=== PATIENT | female | born 1970 | race Caucasian/White ===

== ENCOUNTER → 2016-02-24 | Outpatient (CLI) | payer BC, OTHER ==
[~2016-02-24] MED LIST: AMBIEN5 MG PO; EXCEDRIN EXTRA STREN PO; IBUPROFEN400 MG PO; VICODIN EQUIVAL1 TAB PO
== END ==
LOC: LAB SRH 12:54
DX: N93.9 Abnormal uterine and vaginal bleeding, unspecified (principal)
CPT/HCPCS: 90001; 90047; 90074; 90155; 90364; 91004; 92863; 95059; 98428

== ENCOUNTER 2016-02-26 08:39 | Day surgery (SDC) | payer BC, OTHER ==
--- NOTE | 2016-02-21 23:15 | HISTORY AND PHYSICAL ---
ADMITTED: 02/26/2016 CHIEF COMPLAINT: 1. Abnormal uterine bleeding HISTORY OF PRESENT ILLNESS: This patient was seen for her annual on 01/31/2016. At the time, she was noted to have been seen approximately a year prior and was noted to have midcycle bleeding. An ultrasound had been ordered, but she had not gotten that done until recently. She reported that she is using 3-month suppression hormones, but she notes cramping and spotting to clots every 2 weeks. At her 3-month time for her period , she states the bleeding is heavy but without clots. Her last Pap smear was 2015 and was negative. HPV negative. An ultrasound was done 12/19/2015 that measured her uterus at 8.9 cm with a 1.7 cm intramuscular and a 1.1 cm subserosal midline posterior fibroid. The endometrium measured 4 mm. Ovaries were normal in appearance. However, due to her continued midcycle bleeding, sampling is still recommended. Options for this have been reviewed with her, and she has chosen to proceed with a hysteroscopy, D&C ablation. She is aware that the ablation is not compatible with future childbearing but is not considered adequate control. She would like to change from her current pill to a progesterone only pill after her surgery. Risks of surgery have been discussed with her including infection, bleeding, damage to her structures, anesthesia, and the possibility of further surgery at the time or in in the future. Informed consent has been signed. MEDICAL/SURGICAL HISTORY: Menstrual history includes menarche at age 14. LMP 08/2015. Obstetrical history includes 2 vaginal deliveries in 1998 and 2005 with the babies weighing 10 pounds and 9 pounds, respectively. Past surgical history: Denies. Medical history: Hypothyroidism. MEDICATIONS: 1. Kelnor control pill. 2. Zolpidem 5 mg at bedtime p.r.n. 3. She does not take any medications for her thyroid. ALLERGIES: 1. CODEINE. 2. HYDROCODONE 3. SULFA. SOCIAL HISTORY: She denies tobacco, alcohol, and drug use. FAMILY HISTORY: Both of her parents are . Her father had hypertension and diabetes. She has a half-sister who is alive. She denies any family history of cancer, heart disease, and stroke. REVIEW OF SYSTEMS: She denies headache, ear pain, throat pain, chest pain, shortness of breath, digestive disorders, joint and extremity problems. PHYSICAL EXAMINATION: VITAL SIGNS: She is 5 feet 6 inches, weighs 178.6. Blood pressure 110/70, pulse 60, temperature 97.7. GENERAL: She is well developed, well nourished, alert and oriented. HEENT: Within normal limits. LUNGS: Normal. HEART: Normal. ABDOMEN: Soft, nondistended. EXTREMITIES: No clubbing, cyanosis, or edema. IMPRESSION: 1. Abnormal uterine bleeding. PLAN: Hysteroscopy, dilatation and curettage, ablation scheduled for 02/26/2016. Future options have also been discussed with her in the event that the ablation does not work adequately. Informed consent has been signed.
[~2016-02-26 08:39] MED LIST changes: -IBUPROFEN400 MG PO; -VICODIN EQUIVAL1 TAB PO
[2016-02-26] MEDS ORDERED: IBUPROFEN400 MG PO (12:21)
[2016-02-26] MEDS ORDERED: VICODIN EQUIVAL1 TAB PO (12:21)
--- NOTE | 2016-02-26 12:25 | Provider's Discharge Care Plan ---
Problem, Goal, Plan Problem List 1. Post-op pain Goals: Improve function Instructions: Follow up as directed
--- NOTE | 2016-02-26 12:25 | Provider's Discharge Care Plan ---
Problem, Goal, Plan Problem List 1. Post-op pain Goals: Improve function Instructions: Follow up as directed
--- NOTE | 2016-02-26 16:31 | OPERATIVE REPORT ---
DATE OF SURGERY: 02/26/2016 SURGEON: Janay Sol DO [employer] ATTENDANT: None. PREOPERATIVE DIAGNOSIS: 1. Abnormal uterine bleeding POSTOPERATIVE DIAGNOSES: 1. Abnormal uterine bleeding 2. Polyps in the endometrial cavity PROCEDURES PERFORMED: 1. Hysteroscopy 2. Dilation and curettage 3. NovaSure endometrial ablation ANESTHESIA: LMA. COMPLICATIONS: None. CONDITION: Stable. ESTIMATED BLOOD LOSS: Minimal. FLUIDS: 700 mL of LR. Blood administered: None. DRAINS: 0. URINE OUTPUT: 300 mL preoperatively. PATHOLOGY SPECIMEN: Endocervical curettings and endometrial curettings. IMPLANTS/GRAFTS: None. SURGICAL FINDINGS: Uterus sounded to 8 cm, 3 of which were the cervix. Polypoid masses in the endometrial cavity. Descensus of cervix. SURGICAL TECHNIQUE: The patient was taken to the operating room where her anesthesia was obtained. She was prepped and draped in the normal sterile fashion in the lithotomy position. A pelvic exam under anesthesia was normal, and a sterile speculum was placed. The anterior cervical lip was grasped with a single-toothed tenaculum. The cervix had a noticeable ectropion. There was also a descensus of the cervix to just above the hymenal area. The uterus was sounded to 8 cm. The cervix was then serially dilated to a #7 Pakistani dilator. The cervix was injected with 0.25% Marcaine with epinephrine, using approximately 10 mL. The scope was advanced into the external os. There was normal rugae visible in the lower portion of the endocervical canal, which remained clear. Just above the internal os, there was a polyp-like mass protruding from the anterior wall of the lower endometrium. Other multiple polyps were seen throughout the endometrial cavity. The right tubal ostium was seen. The left was not seen, due to tissue in front of the os. The scope was removed. Endocervical curettings were obtained, followed by endometrial curettings. The ablation wand was then positioned with a length of 5 cm and a width of 2.6 cm. Ablation was performed at a power of 72, lasting 1 minute 13 seconds. Throughout the procedure, there was initially some reddish fluid in the vacuum system, and this slowed in volume and cleared in color during the procedure. On completion of the ablation, the wand was removed and a small amount of necrotic tissue was visible on the mesh. The tenaculum was then removed, and a small amount of bleeding resolved with direct pressure. All instruments were then removed from the patient, and she was awakened from her anesthesia and taken to the recovery room in stable condition.
== END 2016-02-26 14:31 | disposition home or self-care (01) ==
LOC: OR SRH 08:39 → SCU SRH 08:41
PROVIDERS: Obstetrics & Gynecology
PROC: 0UDB8ZX Extraction of Endometrium, Via Natural or Artificial Opening Endoscopic, Diagnostic (ICD-10-PCS; principal; 2016-02-26 10:15)
PROC: 0U5B8ZZ Destruction of Endometrium, Via Natural or Artificial Opening Endoscopic (ICD-10-PCS; principal; 2016-02-26 10:15)
DX: N93.9 Abnormal uterine and vaginal bleeding, unspecified (principal); N84.0 Polyp of corpus uteri
CPT/HCPCS: 29240; 50002; 60001; 70002; 80575; 83432; 83433